=== PATIENT | female | born 1960 | race Caucasian/White ===

== ENCOUNTER 2021-04-28 09:58 | Outpatient (CLI) | payer BC, OTHER ==
[2021-04-28 10:31] LABS: Hemoglobin 12.8 g/dL (12.0-15.5); Mean Corpuscular HGB CONC 33.6 g/dL (32.0-36.0); Mean Corpuscular Hemoglobin 31.3 pg (27.0-33.0); Mean Corpuscular Volume 93.2 fl (81.6-98.3); Mean Platelet Volume 9.3 fl (7.4-10.4); Platelet Count 199 10x3/uL (150-450); RBC Distribution Width 12.4 % (11.5-14.5); Red Blood Cell (RBC) Count 4.09 10x6/uL (3.90-5.03); White Blood Cell (WBC) Count 5.1 10x3/uL (3.5-10.5)
[2021-04-28 10:49] LABS: PTT 25.2 sec (22.0-33.0); Prothrombin Time 9.6 sec (9.5-12.1)
[2021-04-28 11:19] LABS: INR-International Normal Ratio 0.9
[2021-04-29 00:04] LABS: SARS-CoV-2 PCR by NAA Not Detected (NotDetected)
== END 2021-04-28 09:59 | disposition home or self-care (01) ==
LOC: LABBT 09:58
PROVIDERS: ATTEND Neurological Surgery
DX: Z01.812 Encounter for preprocedural laboratory examination (principal); M48.061 Spinal stenosis, lumbar region without neurogenic claudication; M43.16 Spondylolisthesis, lumbar region; Z20.822 Contact with and (suspected) exposure to COVID-19
CPT/HCPCS: 85027; 85610; 85730; U0003; U0005

== ENCOUNTER 2021-05-03 05:30 | Inpatient (IN) | payer OTHER ==
[2021-05-02 11:30] VITALS: BMI 26.6
[2021-05-03] MEDS ORDERED: Vancomycin 1 GM/200 ML BAG ONE (06:06)
[2021-05-03] MEDS ORDERED: Thrombin 5000 UNITS/5 ML VIAL ONE (06:09)
[2021-05-03] MEDS ORDERED: EPINEPHrine 1 MG/ML AMP ONE (06:09)
[2021-05-03] MEDS ORDERED: Bupivacaine PF 0.5% 30 ML VIAL ONE (06:09)
[2021-05-03] MEDS ORDERED: Neomycin-Polymyxin 1 ML AMP ONE (06:09)
[2021-05-03] MEDS ORDERED: Fentanyl 250 MCG/5 ML VIAL ONE (06:15)
[2021-05-03] MEDS ORDERED: Promethazine HCl 25 MG/ML VIAL IM PRN (06:44)
[2021-05-03] MEDS ORDERED: Ondansetron PF 4 MG/2 ML Vial IVP PRN (06:44)
[2021-05-03] MEDS ORDERED: diphenhydrAMINE 50 MG/ML VIAL IVP PRN (06:44)
[2021-05-03] MEDS ORDERED: Acetaminophen 325 MG TAB PO PRN (06:44)
[2021-05-03] MEDS ORDERED: Cyclobenzaprine 10 MG TAB PO PRN (06:44)
[2021-05-03] MEDS ORDERED: Milk Of Magnesia 30 ML UDCUP PO PRN (06:44)
[2021-05-03] MEDS ORDERED: traMADol HCl 50 MG TAB PO PRN ×2 (06:44→12:40)
[2021-05-03] MEDS ORDERED: Mag-Al 1200 mg/1200 mg/30 ML UDCUP PO PRN (06:44)
[2021-05-03] MEDS ORDERED: Bisacodyl 10 MG SUPP PR PRN (06:44)
[2021-05-03] MEDS ORDERED: Non-Formulary Item 1 EACH (Albuterol Sulfate [Albuterol Sulfate Hfa] 8.5 GM Hfa.Aer.Ad) IH PRN (06:51)
[2021-05-03] MEDS ORDERED: Ondansetron PF 4 MG/2 ML Vial ONE (07:02)
[2021-05-03] MEDS ORDERED: PHENYLEPHRINE-NS 100 MCG/ML 10 ML SYRINGE ONE ×2 (07:02→08:59)
[2021-05-03] MEDS ORDERED: Glycopyrrolate 0.2 MG/ML 5 ML SYRINGE ONE (07:02)
[2021-05-03] MEDS ORDERED: Ketorolac Tromethamine 30 MG/ML VIAL ONE (07:02)
[2021-05-03] MEDS ORDERED: Rocuronium Bromide 10 MG/ML (10ML VIAL) ONE (07:02)
[2021-05-03] MEDS ORDERED: Dexamethasone 20 MG/5 ML VIAL ONE (07:02)
[2021-05-03] MEDS ORDERED: Esmolol 100 MG/10 ML VIAL ONE (07:02)
[2021-05-03] MEDS ORDERED: PROPOFOL 200 MG/20 ML VIAL ONE (07:02)
[2021-05-03] MEDS ORDERED: Lidocaine 1% PF 5 ML VIAL ONE (07:02)
[2021-05-03] MEDS ORDERED: Albuterol 200 PUFF (6.7GM INHALER) INH PRN (07:23)
[2021-05-03] MEDS ORDERED: Non-Formulary Item 1 EACH (Omeprazole [Omeprazole] 20 MG Tablet.Dr) PO SCH (09:00)
[2021-05-03] MEDS ORDERED: Non-Formulary Item 1 EACH (Symbicort 2 PUFF) INH SCH (09:00)
[2021-05-03] MEDS ORDERED: Non-Formulary Item 1 EACH (Diclofenac Sodium [Diclofenac Sodium] 75 MG Tablet.Dr) PO SCH (09:00)
[2021-05-03] MEDS ORDERED: Phenylephrine 10 MG/ML VIAL ONE (11:45)
[2021-05-03] MEDS ORDERED: Acetaminophen/Codeine 30-300mg Tablet PO PRN (12:40)
[2021-05-03] MEDS: Sodium Chloride 0.9% 1,000 ML IV SCH ×2 (15:20→21:13)
[2021-05-03] MEDS: Gabapentin 300 MG CAP PO SCH ×3 (15:21→19:44)
[2021-05-03] MEDS ORDERED: Vancomycin HCl 1.25 GM in Sodium Chloride 0.9% 250 ML 250 ML IVPB SCH ×2 (19:00→21:30)
[2021-05-03] MEDS ORDERED: VANCOMYCIN 1.25 GM/250 ML BAG 1.25 GM in Premix Bag 1 BAG IVPB SCH (19:00)
[2021-05-03] MEDS ORDERED: Melatonin 3 MG TAB PO SCH (21:00)
[2021-05-03] MEDS ORDERED: Montelukast Sodium 10 mg Tablet PO SCH (21:00)
[2021-05-03] MEDS ORDERED: Non-Formulary Item 1 EACH (Melatonin [Melatonin] 10 MG Capsule) PO SCH (21:00)
[2021-05-03] MEDS: Mometasone 200 MCG/Formoterol 5 MCG 120 PUFF INHALER INH SCH (22:25)
[2021-05-03] MEDS ORDERED: Dexamethasone 4 mg/ml Vial SLOW IVP SCH (22:45)
[2021-05-04] MEDS: Mometasone 200 MCG/Formoterol 5 MCG 120 PUFF INHALER INH SCH (07:45)
[2021-05-04] MEDS: Gabapentin 300 MG CAP PO SCH ×2 (08:32→14:47)
[2021-05-04] MEDS ORDERED: Prevnar 13-Val Conj/PF 0.5 ML SYRINGE IM ONE (09:00)
[2021-05-04] MEDS: Sodium Chloride 0.9% 1,000 ML IV SCH (10:15)
[2021-05-04 15:32] VITALS: BP 108/69; TEMP 98.9
== END 2021-05-04 18:06 | disposition home or self-care (01) | DRG 455 ==
LOC: SDC 05:30 → T4-B 15:04
PROVIDERS: ADMIT Neurological Surgery; ATTEND Neurological Surgery
PROC: 0SG30AJ Fusion of Lumbosacral Joint with Interbody Fusion Device, Posterior Approach, Anterior Column, Open Approach (ICD-10-PCS; principal; 2021-05-03)
PROC: 0SG3071 Fusion of Lumbosacral Joint with Autologous Tissue Substitute, Posterior Approach, Posterior Column, Open Approach (ICD-10-PCS; 2021-05-03)
PROC: 0SB20ZZ Excision of Lumbar Vertebral Disc, Open Approach (ICD-10-PCS; 2021-05-03)
PROC: 0SB40ZZ Excision of Lumbosacral Disc, Open Approach (ICD-10-PCS; 2021-05-03)
PROC: 01NB0ZZ Release Lumbar Nerve, Open Approach (ICD-10-PCS; 2021-05-03)
DX: M48.062 Spinal stenosis, lumbar region with neurogenic claudication (principal); M43.17 Spondylolisthesis, lumbosacral region; Z23 Encounter for immunization; M54.16 Radiculopathy, lumbar region; F41.9 Anxiety disorder, unspecified; J45.909 Unspecified asthma, uncomplicated; M19.90 Unspecified osteoarthritis, unspecified site; H40.9 Unspecified glaucoma; H26.9 Unspecified cataract; Z90.49 Acquired absence of other specified parts of digestive tract; Z98.51 Tubal ligation status; Z82.3 Family history of stroke; Z82.49 Family history of ischemic heart disease and other diseases of the circulatory system; Z79.899 Other long term (current) drug therapy
CPT/HCPCS: 76000; 90471; 90670; C1713; C1768; G0009; J0171; J1100; J1885; J2370; J2405; J2704; J3010; J3370; J7050; S0020

== ENCOUNTER 2023-04-24 07:24 | Emergency (ER) | payer BC, OTHER, SELFPAY ==
[2023-04-24] MEDS ORDERED: Acetaminophen 325 MG TAB ONE (08:26)
[2023-04-24] MEDS ORDERED: Ondansetron PF 4 MG/2 ML Vial ONE (08:26)
[2023-04-24 08:36] LABS: #Monocytes 0.9 thou/uL (0.11-0.59); #Neutrophils 5.7 thou/uL (1.40-6.50); %Basophils 0.1 % (0.0-1.0); %Lymphocytes 18.2 % (21.0-51.0); %Monocytes 10.5 % (0.0-10.0); %Neutrophils 70.8 % (42.0-75.0); Hematocrit 38.2 % (36.0-47.0); Hemoglobin 13.3 g/dL (12.0-16.0); Mean Corpuscular HGB CONC 34.8 g/dL (32.0-36.0); Mean Corpuscular Hemoglobin 31.1 pg (27.0-31.0); Mean Corpuscular Volume 89.3 fl (78.0-98.0); Mean Platelet Volume 10.1 fL (7.4-10.4); Platelet Count 196 10x3/uL (130-400); RBC Distribution Width 11.9 % (11.5-14.5); Red Blood Cell (RBC) Count 4.28 mill/uL (4.20-5.40); White Blood Cell (WBC) Count 8.1 10x3/uL (4.8-10.8)
[2023-04-24 09:01] LABS: ALT (SGPT) 13 U/L (8-55); AST (SGOT) 18 U/L (5-34); Albumin 4.4 g/dL (3.5-5.0); Alkaline Phosphatase 92 U/L (40-110); Anion Gap 17 mmol/L (10-20); BUN (Urea Nitrogen) 15 mg/dL (9.8-20.1); Bilirubin, Total 0.9 mg/dL (0.2-1.2); Calc. Creatinine Clearance 0 mL/min (70-130); Calcium 9.6 mg/dL (7.8-10.44); Carbon Dioxide 19 mmol/L (22-29); Chloride 98 mmol/L (98-107); Estimated GFR 100; Globulin 3.4 g/dL (2.4-3.5); Glucose 94 mg/dL (70-105); Potassium 3.7 mmol/L (3.5-5.1); Protein, Total 7.8 g/dL (6.0-8.3); Sodium 130 mmol/L (136-145)
[2023-04-24 09:05] LABS: Troponin I Less than 0.010 ng/mL (< 0.028)
[2023-04-24 09:47] LABS: SARS-CoV-2 NAA Rapid Test Not Detected (NotDetected)
[2023-04-24 11:13] LABS: Bilirubin Negative (Negative); Blood, Urine Negative (Negative); CAUTI Indications for Culture Alt mental st,lethar; Clarity Clear (Clear); Glucose, Urine (Dipstick) Normal (Negative); Ketone, Urine 60 mg/dL (Negative); Leukocyte 250 Leu/uL (Negative); Nitrite 1+ (Negative); Protein, Urine (Dipstick) 20 mg/dL (Neg-Trace); RBC/HPF 0-3 HPF (0-3); Squamous Epithelial 0-3 HPF (0-3); Urobilinogen Normal mg/dL (Less than 2)
[2023-04-24 11:21] LABS: Specific Gravity, Urine 1.054 (1.002-1.036)
[2023-04-24 11:22] LABS: Bacteria/HPF 3+ HPF (None Seen)
[2023-04-24 11:23] LABS: Urine Culture Reflex Yes Yes
[2023-04-24] MEDS ORDERED: Sulfameth/Trimethoprim DS 800-160mg TAB ONE (11:29)
== END 2023-04-24 11:36 | disposition home or self-care (01) ==
LOC: ERS 07:24
DX: N10 Acute pyelonephritis (principal); Z20.822 Contact with and (suspected) exposure to COVID-19
CPT/HCPCS: 71045; 71275; 74177; 80053; 81001; 83735; 83880; 84484; 85025; 85379; 87077; 87086; 87186; 93005; 96361; 96374; J2405